=== PATIENT | female | born 1990 | race Caucasian/White ===

== ENCOUNTER 2016-10-12 18:59 | Emergency (ER) | payer OTHER ==
[2016-10-12 19:13] VITALS: BP 138/87; PULSE 113; TEMP 98.3; BMI 34.6
--- NOTE | 2016-10-12 19:56 | PDOC ---
History of Present Illness - General Chief Complaint: Pain Stated Complaint: STOMACH PAIN Time Seen by Provider: 10/12/16 19:38 History Source: Patient Exam Limitations: No Limitations - History of Present Illness Travel History: No Initial Comments: 10/12/16 19:54 26-year-old female presents to the emergency department complaining of right upper quadrant abdominal discomfort. Pain is described as 4/10 dull discomfort to the suprapubic region with nausea/vomiting but denies headache, fever/chills , diarrhea, neck pains, back pains, flank pains, urinary symptoms: Urinary frequency/hesitancy, urgency or burning upon urination. There are no exacerbating or alleviating factors. Patient states she was given misoprostol 2 days ago for her termination. She had vaginal bleeding yesterday and only spotting today. Patient was 6 weeks and 2 days gestation. LMP:August 28, 2016 Timing/Duration: reports: intermittent Quality: reports: mild Abdominal Pain Onset Location: reports: RUQ, suprapubic Pain Radiation: reports: no radiation, epigastric Past History - Past Medical History Allergies/Adverse Reactions: Allergies Allergy/AdvReac Type Severity Reaction Status Date / Time No Known Allergies Allergy Verified 10/12/16 19:10 Home Medications: Ambulatory Orders NK [No Known Home Medication] 10/12/16 Other medical history: Pt denies - Psycho/Social/Smoking Cessation Hx Anxiety: No Suicidal Ideation: No Smoking History: Never smoked Hx Alcohol Use: No Drug/Substance Use Hx: No Substance Use Type: None Review of Systems - Review of Systems Able to Perform ROS?: Yes Comments:: 10/12/16 19:53 CONSTITUTIONAL: Absent: fever, chills, diaphoresis, generalized weakness, malaise, loss of appetite HEENT: Absent: rhinorrhea, nasal congestion, throat pain, throat swelling, difficulty swallowing, mouth swelling, ear pain, eye pain, visual Changes CARDIOVASCULAR: Absent: chest pain, loss of consciousness, palpitations, irregular heart rate, peripheral edema RESPIRATORY: Absent: cough, shortness of breath, dyspnea with exertion, orthopnea, wheezing, stridor, hemoptysis GASTROINTESTINAL: +RUQ/epigastric pain Absent: abdominal distension, nausea, vomiting, diarrhea, constipation, melena , hematochezia GENITOURINARY: Absent: dysuria, frequency, urgency, hesitancy, hematuria, flank pain, genital pain MUSCULOSKELETAL: Absent: myalgia, arthralgia, joint swelling SKIN: Absent: rash, itching, pallor HEMATOLOGIC/IMMUNOLOGIC: Absent: easy bleeding, easy bruising, lymphadenopathy, frequent infections ENDOCRINE: Absent: unexplained weight gain, unexplained weight loss, heat intolerance, cold intolerance NEUROLOGIC: Absent: headache, focal weakness or paresthesias, dizziness, unsteady gait, seizure, mental status changes, bladder or bowel incontinence PSYCHIATRIC: Absent: anxiety, depression, suicidal or homicidal ideation, hallucinations. Is the patient limited [place]ian proficient: No *Physical Exam - Vital Signs Last Vital Signs Temp Pulse Resp BP Pulse Ox 98.3 F 113 H 20 138/87 99 10/12/16 19:07 10/12/16 19:07 10/12/16 19:07 10/12/16 19:07 10/12/16 19:07 - Physical Exam Comments: 10/12/16 19:54 GENERAL: Well developed, well nourished. Awake and alert. No acute distress. HEENT: Normocephalic, atraumatic. PERRLA, EOMI. No conjunctival pallor. Sclera are non- icteric. Moist mucous membranes. Oropharynx is clear. NECK: Supple. Full ROM. No JVD. Carotid pulses 2+ and symmetric, without bruits. No thyromegaly. No lymphadenopathy. CARDIOVASCULAR: Regular rate and rhythm. No murmurs, rubs, or gallops. Distal pulses are 2+ and symmetric. PULMONARY: No evidence of respiratory distress. Lungs clear to auscultation bilaterally. No wheezing, rales or rhonchi. ABDOMINAL: Soft. Non-tender. Non-distended. No rebound or guarding. No organomegaly. Normoactive bowel sounds. MUSCULOSKELETAL Normal range of motion at all joints. No bony deformities or tenderness. No CVA tenderness. EXTREMITIES: No cyanosis. No clubbing. No edema. No calf tenderness. SKIN: Warm and dry. Normal capillary refill. No rashes. No jaundice. NEUROLOGICAL: Alert, awake, appropriate. Cranial nerves 2-12 intact. No deficits to light touch and temperature in face, upper extremities and lower extremities. No motor deficits in the in face, upper extremities and lower extremities. Normoreflexic in the upper and lower extremities. Normal speech. Toes are down- going bilaterally. Gait is normal without ataxia. PSYCHIATRIC: Cooperative. Good eye contact. Appropriate mood and affect. 10/12/16 23:01 Pelvic: External genitalia normal without lesions. Vaginal vault is clear without blood or discharge. Cervix is long and closed. No cervical motion tenderness. Uterus is nontender and normal in size. Adnexa are nontender and without masses. ED Treatment Course - LABORATORY CBC & Chemistry Diagram: 10/12/16 20:00 10/12/16 20:00 Progress Note - Progress Note Progress Note: 2006hrs: Blood drawn by me and sent to the lab via tube system Preliminary transvaginal ultrasound results: Single intrauterine with average sonography gestational age of 6 weeks and 4 days. No heart activity which is suggestive of demise. *DC/Admit/Observation/Transfer Diagnosis at time of Disposition: demise - Discharge Dispostion Admit: No - Referrals Referrals: Kavitha Bowers [Primary Care Provider] - Julio Peña MD [Staff Physician] - - Patient Instructions Printed Discharge Instructions: DI for Miscarriage Additional Instructions: You must follow up with [facility] or the automotive sales representative listed on your discharge. You do not past your , you will need a D&C. A D&C as you know is a procedure for your demise. We I spoke to Dr. Peña: Construction Sales Representative acetaldehyde converter operator for [facility] emergency department. You have to follow-up with [facility] or the clinic for an appointment. Your transvaginal ultrasound this evening shows a single intrauterine with average gestational age of 6 weeks and 4 days. There is no heart activity which suggests a demise. Your right ovary was not visualized. The left ovary cysts measuring 2.3 cm. Beta HC.6 Return back to the emergency department for any concerns.
[2016-10-12] MEDS ORDERED: SODIUM CHLORIDE 1,000 ML IV STA (19:57)
[2016-10-12 20:11] LABS: BASOPHIL 0.5 % (0-2.0); EOSINOPHIL 0.1 % (0-4.5); MCH 27.9 pg (25.7-33.7); MEAN CELL VOLUME 84.6 fl (80-96); MEAN PLT VOLUME 6.8 fl (7.5-11.1); NEUTROPHILS 70.6 % (42.8-82.8); PLATELET COUNT 353 K/MM3 (134-434); RDW 13.8 % (11.6-15.6); WHITE BLOOD COUNT 11.3 K/mm3 (4.0-10.0)
[2016-10-12 20:33] LABS: URINE APPEARANCE SLCLOUDY; URINE BILIRUBIN NEGATIVE (NEGATIVE); URINE COLOR YELLOW; URINE GLUCOSE (UA) 1+ (NEGATIVE); URINE KETONE TRACE (NEGATIVE); URINE LEUK ESTERASE NEGATIVE (NEGATIVE); URINE NITRITE NEGATIVE (NEGATIVE); URINE UROBILINOGEN NEGATIVE E.U./dl (0.2-1.0)
[2016-10-12 20:36] LABS: URINE BLOOD 3+ (NEGATIVE); URINE PROTEIN 1+ (NEGATIVE)
[2016-10-12 20:37] LABS: URINE BACTERIA RARE /hpf (NONE SEEN); URINE HYALINE CAST 1 /lpf; URINE MUCUS RARE; URINE RBC 66 /hpf (0-3); URINE WBC 14 /hpf (3-5)
[2016-10-12 20:45] LABS: ALBUMIN 3.6 g/dl (3.4-5.0); ALK PHOS 85 U/L (45-117); AMYLASE 80 U/L (25-115); ANION GAP 10 (8-16); BILIRUBIN,TOTAL 0.5 mg/dL (0.2-1.0); CALCIUM 9.2 mg/dL (8.5-10.1); CO2 27 mmol/L (21-32); COCKROFT - GAULT 194.4205; CREATININE 0.7 mg/dL (0.55-1.02); GLUCOSE,RANDOM 96 mg/dL (74-106); SGOT/AST 14 U/L (15-37); SGPT/ALT 16 U/L (12-78); TOT PROT 6.9 g/dl (6.4-8.2)
--- NOTE | 2016-10-12 21:08 | PDOC ---
*Physical Exam - Vital Signs Last Vital Signs Temp Pulse Resp BP Pulse Ox 98.3 F 113 H 20 138/87 99 10/12/16 19:07 10/12/16 19:07 10/12/16 19:07 10/12/16 19:07 10/12/16 19:07 ED Treatment Course - LABORATORY CBC & Chemistry Diagram: 10/12/16 20:00 10/12/16 20:00 - ADDITIONAL ORDERS Additional order review: Laboratory Results 10/12/16 10/12/16 10/12/16 20:20 20:00 20:00 Sodium 140 Potassium 3.6 Chloride 103 Carbon Dioxide 27 Anion Gap 10 BUN 5 L Creatinine 0.7 Creat Clearance w eGFR > 60 Random Glucose 96 Calcium 9.2 Total Bilirubin 0.5 D AST 14 L D ALT 16 Alkaline Phosphatase 85 Total Protein 6.9 Albumin 3.6 Total Amylase 80 Lipase 266 Beta HCG, Quant 07738.6 Urine Color Yellow Urine Appearance Slcloudy Urine pH 5.0 Urine Protein 1+ H Urine Glucose (UA) 1+ H Urine Ketones Trace H Urine Blood 3+ H Urine Nitrite Negative Urine Bilirubin Negative Urine Urobilinogen Negative Ur Leukocyte Esterase Negative Urine RBC 66 Urine WBC 14 Ur Epithelial Cells Moderate Urine Bacteria Rare Hyaline Casts 1 Urine Mucus Rare 10/12/16 20:00 RBC 4.24 MCV 84.6 MCHC 33.0 RDW 13.8 MPV 6.8 L Neutrophils % 70.6 Lymphocytes % 21.7 D Monocytes % 7.1 Eosinophils % 0.1 Basophils % 0.5 - Medications Given in the ED: ED Medications Discontinued Medications Generic Name Dose Route Start Last Admin Trade Name Lesq PRN Reason Stop Dose Admin Sodium Chloride 1,000 mls @ 1,000 mls/hr 10/12/16 19:57 10/12/16 20:18 Normal Saline - IV 10/12/16 20:56 1,000 mls/hr ASDIR STA Administration Medical Decision Making - Medical Decision Making 10/12/16 21:08 agree with care from CRISPIN Gomez *DC/Admit/Observation/Transfer Diagnosis at time of Disposition: demise - Referrals Referrals: Julio Peña MD [Staff Physician] - Kavitha Bowers [Primary Care Provider] - - Patient Instructions Printed Discharge Instructions: DI for Miscarriage Additional Instructions: You must follow up with [facility] or the financial manager listed on your discharge. You do not past your , you will need a D&C. A D&C as you know is a procedure for your demise. We I spoke to Dr. Peña: Telecommunications Technician life skills consultant for [facility] emergency department. You have to follow-up with [facility] or the clinic for an appointment. Your transvaginal ultrasound this evening shows a single intrauterine with average gestational age of 6 weeks and 4 days. There is no heart activity which suggests a demise. Your right ovary was not visualized. The left ovary cysts measuring 2.3 cm. Beta HC.6 Return back to the emergency department for any concerns. - Post Discharge Activity
== END 2016-10-12 23:20 | disposition home or self-care (01) ==
LOC: JER 18:59
PROC: 3E0337Z Introduction of Electrolytic and Water Balance Substance into Peripheral Vein, Percutaneous Approach (ICD-10-PCS; principal; 2016-10-12)
DX: O02.1 Missed abortion (principal); Z3A.01 Less than 8 weeks gestation of pregnancy
CPT/HCPCS: 36415; 76817-TC; 80053; 81003; 81015; 82150; 83690; 84702; 85025; 86850; 86900; 86901; 99284-25